=== PATIENT | female | born 1985 | race Caucasian/White ===

== ENCOUNTER 2016-09-19 09:39 | Inpatient (IN) | payer OTHER ==
[2016-09-19] MEDS ORDERED: METHYLERGONOVINE 0.2 MG/ML 1 ML AMP IM PRN (10:13)
[2016-09-19] MEDS ORDERED: OXYTOCIN 10 UNIT/ML 1 ML VIAL IM PRN (10:13)
[2016-09-19] MEDS ORDERED: TERBUTALINE 1 MG/ML VIAL SQ PRN (10:13)
[2016-09-19] MEDS ORDERED: LIDOCAINE 1% (PF) 10 MG/ML (30 ML SDV) SQ PRN (10:13)
[2016-09-19] MEDS ORDERED: CARBOPROST TROMETHAMINE 250 MCG/ML 1 ML AMP IM PRN (10:13)
[2016-09-19] MEDS ORDERED: OXYTOCIN 30 UNITS/500 ML NS 30 UNIT in SALINE 1 500ML.BAG IV SCH (10:15)
[2016-09-19 10:19] VITALS: BMI 29.0
[2016-09-19] MEDS: LACTATED RINGERS 1,000 ML IV SCH ×2 (10:55→14:50)
[2016-09-19 10:59] LABS: Basophils % (A) 0 %; CH 28.6; CHCM 32.6; Eosinophils # (A) 0.3 k/uL (0-0.7); Eosinophils % (A) 3 %; HCT 30.5 % (34.0-46.0); HDW 3.72; HGB 9.5 gm/dL (11.4-16.0); Hypochromasia Slight; Luc # (Auto) 0.16; Luc % (Auto) 2; Lymphocytes # (A) 1.5 k/uL (1.0-4.8); Lymphocytes % (A) 17 %; MCH 27.5 pg (25.0-35.0); MCHC 31.3 g/dL (31.0-37.0); MCV 87.9 fL (80.0-100.0); Mean Platelet Volume 8.6; Monocytes # (A) 0.3 k/uL (0-1.0); Monocytes % (A) 3 %; Neutrophils # (A) 6.7 k/uL (1.3-7.7); Neutrophils % (A) 75 %; Poikilocytosis Slight; RBC 3.46 m/uL (3.80-5.40); RDW 14.7 % (11.5-15.5); WBC (Perox) 9.78
[2016-09-19 11:03] LABS: Glucose,Whole Blood 77 mg/dL (75-99)
[2016-09-19 12:26] LABS: Hemoglobin A1C 5.4 % (4.2-6.1)
[2016-09-19] MEDS ORDERED: BUPIVACAINE (PF) 0.25% 25 ML, fentaNYL (PF) 200 MCG in SODIUM CHLORIDE 0.9% 71 ML EPIDURAL ONE (14:48)
[2016-09-19] MEDS ORDERED: diphenhydrAMINE 50 MG/ML 1 ML VIAL IVP PRN ×2 (18:45)
[2016-09-19] MEDS ORDERED: IBUPROFEN 600 MG TAB PO PRN (18:45)
[2016-09-19] MEDS ORDERED: Acetaminophen-Codeine 300-30mg TAB PO PRN ×2 (18:45)
[2016-09-19] MEDS ORDERED: ZOLPIDEM 5 MG TAB PO PRN (18:45)
[2016-09-19] MEDS ORDERED: SIMETHICONE 80 MG CHEWABLE PO PRN (18:45)
[2016-09-19] MEDS ORDERED: ACETAMINOPHEN TAB 325 MG TAB PO PRN (18:45)
[2016-09-19] MEDS ORDERED: diphenhydrAMINE 25 MG CAP PO PRN (18:45)
[2016-09-19] MEDS ORDERED: HYDROCORTISONE 2.5% RECTAL CREAM 30 GM TUBE RECTAL PRN (18:45)
[2016-09-19] MEDS ORDERED: WITCH HAZEL 1 EACH MED..PAD TOPICAL PRN (18:45)
[2016-09-19] MEDS ORDERED: diphenhydrAMINE 50 MG CAP PO PRN (18:45)
[2016-09-19] MEDS ORDERED: BENZOCAINE/MENTHOL SPRAY 1 GM/SPRAY AEROSOL TOPICAL PRN (18:45)
[2016-09-19] MEDS ORDERED: LANOLIN CREAM 5 GM TUBE TOPICAL PRN (18:45)
--- NOTE | 2016-09-19 18:51 | P.HPOB ---
History of Present Illness H&P Date: 09/19/16 Chief Complaint: IUP term: JAMES Traore is a 31-year-old at 38 weeks gestation arrives complaining of spontaneous rupture membranes. She reports that earlier this morning she had a large gush of fluid and continued to leak. Amateur was positive. She was having few contractions. She was dilated 3 cm 90% effaced and -3 station. Her course otherwise was unremarkable. She was feeling well at this time. Pertinent labs include A+ blood type Rh antibody negative, rubella immune , hepatitis B surface antigen and RPR were negative GBS negative. Assessment intrauterine 38 weeks. Plan expect spontaneous vaginal delivery. She plans to do epidural for analgesia. Review of Systems All systems: negative Constitutional: Denies chills, Denies fever Eyes: denies blurred vision, denies pain Ears, nose, mouth and throat: Denies headache, Denies sore throat Cardiovascular: Denies chest pain, Denies shortness of breath Respiratory: Denies cough Gastrointestinal: Denies abdominal pain, Denies diarrhea, Denies nausea, Denies vomiting Genitourinary: Denies dysuria, Denies hematuria Musculoskeletal: Denies myalgias Integumentary: Denies pruritus, Denies rash Neurological: Denies numbness, Denies weakness Psychiatric: Denies anxiety, Denies depression Endocrine: Denies fatigue, Denies weight change Past Medical History Past Medical History: No Reported History History of Any Multi-Drug Resistant Organisms: None Reported Past Surgical History: No Surgical Hx Reported Past Anesthesia/Blood Transfusion Reactions: No Reported Reaction Past Psychological History: No Psychological Hx Reported Smoking Status: Never smoker Past Alcohol Use History: None Reported Past Drug Use History: None Reported - Past Family History Mother Family Medical History: Hypertension Medications and Allergies Home Medications Medication Instructions Recorded Confirmed Type Fio-Wghy-Dkpal Acid 1 cap PO DAILY 09/19/16 09/19/16 History [-U Capsule] Allergies Allergy/AdvReac Type Severity Reaction Status Date / Time No Known Allergies Allergy Verified 09/19/16 09:51 Exam Osteopathic Statement: *. No significant issues noted on an osteopathic structural exam other than those noted in the History and Physical/Consult. - Vital Signs Vital signs: Vital Signs Temp Pulse Resp BP 09/19/16 10:13 97.0 F L 134 H 16 118/77 Intake and Output 09/19/16 09/19/16 09/19/16 06:59 14:59 22:59 Intake Total 1000 Balance 1000 Intake: IV 1000 Lactated Ringers 1,000 ml 1000 @ 125 mls/hr IV .Q8H [facility] Rx#:[id number] Other: Weight 67.585 kg Patient Weight 09/20/16 06:59 Weight 67.585 kg - OBG Physical Exam Breast: both: normal (no masses) Abdomen: bowel sounds normal, no diffuse tenderness, no bruit present, no guarding noted, no hepatomegaly, no splenomegaly, no mass Vulva: both: normal Vagina: normal moisture, no discharge Cervix: no lesion, no discharge Uterus: normal size, normal contour Adnexa: both: normal Anus/Rectum: normal perianal skin, no rectal mass, no hemorrhoids, heme negative Results Result Diagrams: 09/19/16 10:47 Abnormal Lab Results - Last 24 Hours (Table) 09/19/16 Range/Units 10:47 RBC 3.46 L (3.80-5.40) m/uL Hgb 9.5 L (11.4-16.0) gm/dL Hct 30.5 L (34.0-46.0) %
--- NOTE | 2016-09-19 18:55 | P.PROBDLV ---
Vaginal Delivery Note - . Vaginal Delivery Note: Patient progressed to complete and pushing with spontaneous vaginal delivery of a viable male over a third-degree midline episiotomy. Following delivery of the head anterior posterior shoulders were easily delivered with gentle downward upper traction followed by the remainder the baby. Mouth nares were then bulb suctioned and baby was placed on mother's abdomen where the umbilical cord was clamped and cut in usual fashion. Placenta was then delivered intact and Pitocin was added to the IV. Inspection of the perineum revealed a third-degree extension of the episiotomy. Once this was evaluated 3- 0 Vicryl was used to oversew the capsular area of the rectum bringing the external anal sphincter muscles together and with good approximation. Anal wink was noted. I did do a rectal exam both before repair and after repair and no capsular damage was detected. once the initial repair of the tissues over the rectum was completed the remainder of the episiotomy was closed with 3-0 Vicryl. Once completed, sponge and instrument count were correct. scores were 8 and 9 at one and 5 minutes respectively and the weight was 6 lbs. 14 oz. Both mother and baby are stable following delivery.
[2016-09-19] MEDS: SENNOSIDES-DOCUSATE SODIUM 1 EACH TAB PO SCH (21:35)
[2016-09-19] MEDS: IBUPROFEN ORAL SUSP 100 MG/5 ML CUP PO PRN (22:08)
[2016-09-20] MEDS: ACET/COD 240MG/24MG LIQ 10 ML SYRG PO PRN ×3 (04:11→23:40)
[2016-09-20] MEDS: LACTATED RINGERS 1,000 ML IV SCH (04:12)
[2016-09-20] MEDS ORDERED: INFLUENZA VACCINE (3YR+) 60 MCG/0.5 ML SYRINGE IM ONE (04:38)
--- NOTE | 2016-09-20 08:37 | P.PNOBGVD ---
Subjective - Subjective Principal diagnosis: post day 1 Interval history: Eugenie is seen and evaluated day 1. Overall she says she is feeling fine but she does have some soreness. She did have a third-degree perineal extension of an episiotomy which she says is tender but with lysis coned-down swelling lysed. We'll plan to continue observational care today or trying to keep her stool at least somewhat soft so that she does not have to bear down much potentially damaging the repair that was done in that area. Other questions are answered for her at this time. Her vital signs are currently stable and she is afebrile. Her heart is regular, lungs are clear and her extremities are without pain. Assessment day 1. Plan discharged to home. Patient reports: Reports appetite normal, Reports voiding normally, Reports pain well controlled, Reports ambulating normally [place]: doing well Objective - Latest Vital Signs Latest vital signs: Vital Signs Temp Pulse Resp BP Pulse Ox 09/20/16 08:00 98.1 F 95 16 108/54 09/20/16 04:00 98.0 F 93 16 104/66 09/19/16 23:53 98 F 93 16 129/70 09/19/16 20:24 97.6 F 118 H 16 118/67 09/19/16 19:54 121 H 16 111/61 09/19/16 19:24 97.6 F 121 H 16 114/68 97 09/19/16 19:09 112 H 16 107/58 09/19/16 18:54 127 H 16 127/63 09/19/16 18:39 130 H 16 122/61 09/19/16 18:24 97.9 F 130 H 16 123/60 09/19/16 10:13 97.0 F L 134 H 16 118/77 Intake and Output 09/19/16 09/20/16 09/20/16 22:59 06:59 14:59 Other: # Voids 1 1 1 - Exam Lungs: bilateral: normal Chest: Normal S1, Normal S2 Extremities: Present: normal Abdomen: Present: normal appearance, soft Uterus: Present: normal, firm Comments: Third-degree perineal repair intact - Labs Labs: Abnormal Lab Results - Last 24 Hours (Table) 09/19/16 Range/Units 10:47 RBC 3.46 L (3.80-5.40) m/uL Hgb 9.5 L (11.4-16.0) gm/dL Hct 30.5 L (34.0-46.0) %
[2016-09-20] MEDS: SENNOSIDES-DOCUSATE SODIUM 1 EACH TAB PO SCH ×2 (08:55→20:30)
[2016-09-20] MEDS: IBUPROFEN ORAL SUSP 100 MG/5 ML CUP PO PRN ×2 (09:22→18:38)
[2016-09-20] MEDS ORDERED: fentaNYL (PF) 50 MCG/ML 5 ML AMP ONE (14:32)
[2016-09-20] MEDS ORDERED: BUPIVACAINE (PF) 0.25% 30 ML VIAL ONE (14:32)
[2016-09-20] MEDS ORDERED: SODIUM CHLORIDE 0.9% 100 ML BAG ONE (14:32)
[2016-09-21 08:00] VITALS: BP 118/71; PULSE 100; RESP 16; TEMP 97.1
[2016-09-21] MEDS: IBUPROFEN ORAL SUSP 100 MG/5 ML CUP PO PRN (08:12)
--- NOTE | 2016-09-21 08:40 | P.DS ---
Providers Date of admission: 09/19/16 10:08 Expected date of discharge: 09/21/16 Attending physician: Ramana Cordero Primary care physician: Stated None Hospital Course: Overall pale is doing very well. She is ambulating, voiding, and she is tolerating her diet. She has had a bowel movement and did not show some prominent her stitches. Her vital signs are stable and afebrile. Her heart is regular her lungs are clear and her abdomen is soft. Her uterus is firm and lochia is reported be light. Extremities are without pain. Prescription for Tylenol 3 and Motrin provided. She will follow me in 6 weeks. Discharge instructions were thoroughly reviewed and all questions are answered for her prior to discharge. She is stable for discharge today on day 2. Patient Condition at Discharge: Good Plan - Discharge Summary New Discharge Prescriptions: Acetaminophen-Codeine 300-30mg [Tylenol #3] 1 tab PO Q4H PRN #30 tablet PRN Reason: Pain Ibuprofen [Motrin] 600 mg PO Q6HR PRN #30 tab PRN Reason: Pain Discharge Medication List Lgy-Lnja-Mlfhz Acid [-U Capsule] 1 cap PO DAILY 09/19/16 [ History] Acetaminophen-Codeine 300-30mg [Tylenol #3] 1 tab PO Q4H PRN #30 tablet [Rx] Ibuprofen [Motrin] 600 mg PO Q6HR PRN #30 tab 09/21/16 [Rx] Follow up Appointment(s)/Referral(s): Ramana Cordero DO [Doctor of Osteopathic Medicine] - 1 Week Activity/Diet/Wound Care/Special Instructions: No heavy lifting, limit stairs and driving and pelvic rest. If any high temperatures, heavy bleeding, or severe pain call my office Discharge Disposition: HOME SELF-CARE
== END 2016-09-21 12:30 | disposition home or self-care (01) | DRG 775 ==
LOC: FBPOP 09:39 → 4FBP 10:08
PROVIDERS: ADMIT Obstetrics & Gynecology; ATTEND Obstetrics & Gynecology
PROC: 0DQR0ZZ Repair Anal Sphincter, Open Approach (ICD-10-PCS; principal; 2016-09-19)
PROC: 10E0XZZ Delivery of Products of Conception, External Approach (ICD-10-PCS; principal; 2016-09-19)
PROC: 0W8NXZZ Division of Female Perineum, External Approach (ICD-10-PCS; principal; 2016-09-19)
DX: O70.20 Third degree perineal laceration during delivery, unspecified (principal); Z37.0 Single live birth; Z3A.38 38 weeks gestation of pregnancy
CPT/HCPCS: 59025; 83036; 84112; 85025; 88307; 90686; 99213

== ENCOUNTER → 2018-02-09 | Outpatient (CLI) | payer OTHER ==
--- NOTE | 2018-01-30 14:23 | US ---
EXAMINATION TYPE: US OB anatomy transabd DATE OF EXAM: 01/30/2018 COMPARISON: NONE HISTORY: 32-year-old female O36.62X0 Large for dates 2nd trimester. LGA TECHNIQUE: Transabdominal (TA) FINDINGS: EXAM MEASUREMENTS: GESTATIONAL AGE / DATING Physician Established: (19 weeks/0 days) EDC: 06/26/18 Dates by LMP: (19 weeks/0 days) EDC: 06/26/18 Dates by First Scan: no prior scan Dates by Current Scan for: (19 weeks/1 days) EDC: 06/25/18 SURVEY IUP: Single PLACENTA: Anterior/fundal PREVIA: No previa LALITA: 10.3 cm Normal CERVICAL LENGTH (transabdominal: norm > 3.0cm): 4.0 cm BIOMETRY PRESENTATION: Variable LIE: Transverse lie with head maternal LT BPD: 4.2 cm 18 weeks / 4 days HC: 16.0 cm 18 weeks / 6 days AC: 14.7 cm 20 weeks / 0 days FL: 3.1 cm 19 weeks / 5 days ESTIMATED WEIGHT IN GRAMS: 306 grams ESTIMATED WEIGHT IN LBS/OZ: 0 lbs. 11 oz. WEIGHT PERCENTAGE BASED ON ESTABLISHED DATE: 83.6 % HC/AC: 1.09 Normal FL/AC: 21.23 Normal HEART RATE: 140 bpm RHYTHM: Normal ANATOMY SEEN (within normal limits): Lateral Vent (< 1 cm) 0.7 cm Cisterna Magna (< 1.1 cm) 0.4 cm Nuchal Fold (< 0.6 cm) 0.4 cm Cerebellum (varies with age) 1.7 cm Choroid Plexus (bilateral) Midline Falx Cavus Septi Pellucidi Four Chamber Heart Outflow tracts: RVOT Stomach Situs Nose / Lips Diaphragm Kidneys (bilateral) Bladder Cord Insert Three Vessel Cord Arms (bilateral) Legs (bilateral) ANATOMY SUBOPTIMALLY VISUALIZED: Outflow tracts: LVOT Longitudinal Spine Transverse Spine Single viable IUP 19wks/1day with CECILIA of 06/25/18. IMPRESSION: 1. Single live intrauterine with estimated gestational age of 19 weeks 0 days. Current ultr asound biometry is concordant (19 weeks 1 day) placing the child at the 84th percentile for weight. 2. A few of the structures on the survey were suboptimally visualized (LVOT and transverse/long itudinal spine). If desired, the patient can be scheduled for a rescan in one to 2 weeks to reassess these structures. 3. Otherwise, the remaining structures appear normal.
--- NOTE | 2018-02-09 14:16 | US ---
EXAMINATION TYPE: US OB Call Back DATE OF EXAM: 02/09/2018 COMPARISON: US CLINICAL HISTORY: [id number] FOLLOW PREV ABN ULTRASOUND; OB callback for spine and LVOT GESTATIONAL AGE / DATING Dates by Initial Survey Scan: (19 weeks/1 day) EDC: 06/25/2018 HEART RATE: 144 bpm RHYTHM: Normal ANATOMY SEEN (second anatomic survey look): LVOT within normal limits Longitudinal Spine: within normal limits Transverse Spine: within normal limits IMPRESSION: Longitudinal and transverse spine as well as LVOT are within normal limits.
== END | disposition home or self-care (01) ==
LOC: RADUSWWP 01-30 11:55
PROVIDERS: ATTEND Obstetrics & Gynecology
DX: O36.62X0 Maternal care for excessive fetal growth, second trimester, not applicable or unspecified (principal); Z3A.19 19 weeks gestation of pregnancy
CPT/HCPCS: 76811

== ENCOUNTER → 2018-05-01 | Outpatient (CLI) | payer OTHER ==
--- NOTE | 2018-05-01 17:48 | US ---
EXAMINATION TYPE: US OB >= 14 wk fetus DATE OF EXAM: 05/01/2018 COMPARISON: 01/30/2018 CLINICAL HISTORY: 32-year-old female O36.63X0 Large for dates 3rd trimester, growth TECHNIQUE: OBTA FINDINGS: GESTATIONAL AGE / DATING Physician Established: (32 weeks/0 days) EDC: 06/26/2018 Dates by LMP: (32 weeks/0 days) EDC: 06/26/2018 Dates by First Scan: (32 weeks/0 days) EDC: 06/26/2018 Dates by Current Scan: (33 weeks/5 days +/- 2 weeks 3 days) EDC: 06/14/2018 (11 days more growth than expected from 01/30/2018) SURVEY IUP: Single PLACENTA: Anterior PREVIA: No Previa LALITA: 20.5 cm , upper limits of normal. CERVICAL LENGTH (transabdominal: norm > 3.0cm): 3.9 cm BIOMETRY PRESENTATION: Vertex LIE: Longitudinal BPD: 8.4 cm 33 weeks / 6 days HC: 30.7 cm 34 weeks / 2 days AC: 28.9 cm 33 weeks / 0 days FL: 6.6 cm 33 weeks / 6 days ESTIMATED WEIGHT IN GRAMS: 2196 grams ESTIMATED WEIGHT IN LBS/OZ: 4 lbs. 13 oz. WEIGHT PERCENTAGE BASED ON ESTABLISHED DATES: 84% (versus 83.6%, previously). HC/AC: 1.1 Normal FL/AC: 22.6 Normal HEART RATE: 159 bpm RHYTHM: Normal IMPRESSION: 1. Single live intrauterine with estimated and established gestational age of 32 weeks 0 da ys by LMP. By current ultrasound biometry, there has been 11 days more growth than expected from 01/30 placing the gestation at 33 weeks 5 days. Continued follow-up can be performed. 2. EFW % remains around the 84th percentile.
== END ==
LOC: RADUSWWP 14:12
PROVIDERS: ATTEND Obstetrics & Gynecology
DX: O36.63X0 Maternal care for excessive fetal growth, third trimester, not applicable or unspecified (principal); Z3A.32 32 weeks gestation of pregnancy
CPT/HCPCS: 76805

== ENCOUNTER 2018-06-20 06:00 | Inpatient (IN) | payer OTHER ==
[2018-06-20] MEDS ORDERED: CARBOPROST TROMETHAMINE 250 MCG/ML 1 ML AMP IM PRN (06:57)
[2018-06-20] MEDS ORDERED: TERBUTALINE 1 MG/ML VIAL SQ PRN (06:57)
[2018-06-20] MEDS ORDERED: OXYTOCIN 10 UNIT/ML 1 ML VIAL IM PRN (06:57)
[2018-06-20] MEDS ORDERED: LIDOCAINE 0.5% (PF) 5 MG/ML (50 ML SDV) SQ PRN (06:57)
[2018-06-20] MEDS ORDERED: METHYLERGONOVINE 0.2 MG/ML 1 ML AMP IM PRN (06:57)
[2018-06-20] MEDS ORDERED: OXYTOCIN 20 UNITS/1000 ML NS 1,000 ML IV SCH (07:00)
[2018-06-20] MEDS: LACTATED RINGERS 1,000 ML IV SCH ×2 (07:02→23:59)
[2018-06-20 07:11] LABS: Basophils % (A) 0 %; Eosinophils # (A) 0.2 k/uL (0-0.7); Eosinophils % (A) 2 %; HCT 37.1 % (34.0-46.0); HGB 12.3 gm/dL (11.4-16.0); Lymphocytes # (A) 2.4 k/uL (1.0-4.8); Lymphocytes % (A) 30 %; MCH 31.2 pg (25.0-35.0); MCHC 33.2 g/dL (31.0-37.0); Monocytes # (A) 0.2 k/uL (0-1.0); Monocytes % (A) 3 %; Neutrophils # (A) 4.8 k/uL (1.3-7.7); Neutrophils % (A) 62 %; Platelet Count 169 k/uL (150-450); RBC 3.95 m/uL (3.80-5.40); RDW 14.9 % (11.5-15.5); WBC 7.8 k/uL (3.8-10.6)
[2018-06-20 07:33] VITALS: RESP 16; BMI 30.2
--- NOTE | 2018-06-20 08:14 | P.HPOB ---
History of Present Illness H&P Date: 06/20/18 Chief Complaint: Intrauterine at term: Induction of labor Eugenie is a 33-year-old at 39 weeks gestation who arrives for induction of labor. Her course has been unremarkable and she is feeling well at this time. Currently she is dilated to approximately 2 cm and 70% effaced. Artificial rupture membranes was performed and clear fluid is noted. Pertinent labs include A+ blood type Rh antibody was negative, rubella immune, hepatitis B surface antigen and RPR as well as GBS were all negative. All questions are answered for her and there is a category 1 tracing noted at this time. We plan to expect spontaneous vaginal delivery at currently she into space not using anything for pain. Past Medical History Past Medical History: No Reported History History of Any Multi-Drug Resistant Organisms: None Reported Past Surgical History: No Surgical Hx Reported Past Anesthesia/Blood Transfusion Reactions: No Reported Reaction Past Psychological History: No Psychological Hx Reported Smoking Status: Never smoker Past Alcohol Use History: None Reported Past Drug Use History: None Reported - Past Family History Mother Family Medical History: Hypertension Medications and Allergies Home Medications Medication Instructions Recorded Confirmed Type Fsm-Hmhu-Htaqc Acid 1 cap PO DAILY 09/19/16 06/20/18 History [-U Capsule (formulary)] Ferrous Sulfate [Iron] 325 mg PO DAILY 06/20/18 06/20/18 History Allergies Allergy/AdvReac Type Severity Reaction Status Date / Time No Known Allergies Allergy Verified 09/19/16 09:51 Exam Osteopathic Statement: *. No significant issues noted on an osteopathic structural exam other than those noted in the History and Physical/Consult. Vital Signs Temp Pulse Resp BP 06/20/18 06:54 97.4 F L 120 H 16 136/82 Intake and Output 06/19/18 06/20/18 06/20/18 22:59 06:59 14:59 Other: Weight 70.307 kg - OBG Physical Exam Breast: both: normal (no masses) Abdomen: bowel sounds normal, no diffuse tenderness, no bruit present, no guarding noted, no hepatomegaly, no splenomegaly, no mass Vulva: both: normal Vagina: normal moisture, no discharge Cervix: no lesion, no discharge Uterus: normal size, normal contour Adnexa: both: normal Anus/Rectum: normal perianal skin, no rectal mass, no hemorrhoids, heme negative Results Result Diagrams: 06/20/18 06:55
[2018-06-20] MEDS ORDERED: diphenhydrAMINE 50 MG CAP PO PRN (12:33)
[2018-06-20] MEDS ORDERED: HYDROcodone/APAP 5-325MG 1 EACH TAB PO PRN (12:33)
[2018-06-20] MEDS ORDERED: IBUPROFEN 600 MG TAB PO PRN (12:33)
[2018-06-20] MEDS ORDERED: LANOLIN CREAM 5 GM TUBE TOPICAL PRN (12:33)
[2018-06-20] MEDS ORDERED: HYDROCORTISONE 2.5% RECTAL CREAM 30 GM TUBE RECTAL PRN (12:33)
[2018-06-20] MEDS ORDERED: ZOLPIDEM 5 MG TAB PO PRN (12:33)
[2018-06-20] MEDS ORDERED: MEASLES-MUMPS-RUBELLA VACC/PF 12,500 UNIT/0.5 ML VIAL SQ ONE (12:33)
[2018-06-20] MEDS ORDERED: diphenhydrAMINE 50 MG/ML 1 ML VIAL IVP PRN ×2 (12:33)
[2018-06-20] MEDS ORDERED: SIMETHICONE 80 MG CHEWABLE PO PRN (12:33)
[2018-06-20] MEDS ORDERED: ACETAMINOPHEN TAB 325 MG TAB PO PRN (12:33)
[2018-06-20] MEDS ORDERED: WITCH HAZEL 1 EACH MED..PAD TOPICAL PRN (12:33)
[2018-06-20] MEDS ORDERED: diphenhydrAMINE 25 MG CAP PO PRN (12:33)
[2018-06-20] MEDS ORDERED: BENZOCAINE/MENTHOL SPRAY 1 GM/SPRAY AEROSOL TOPICAL PRN (12:33)
--- NOTE | 2018-06-20 12:35 | P.PROBDLV ---
Vaginal Delivery Note - . Vaginal Delivery Note: Patient progressed complete and pushed was spontaneous vaginal delivery over a midline episiotomy. Midline episiotomy was done due to heart tones in the 50s during her pushing. In between pushes heart rate sounded like it came up But I Cannot Verify That As We Were Unable to Keep the Baby on the Monitor Well at That Point, and with the Heart Tones in the 50s during Pushing Expeditious Delivery Was Required. A Nuchal Cord 2 Was Noted Following Delivery of the Head and It Was Easily Reduced. Anterior and Posterior Shoulders Were Then Gently Delivered without Difficulty. Mouth and Nares Were Then Bulb Suctioned and Baby Was Placed on Mother's Abdomen Where the Umbilical Cord Was Clamped Cut Usual Fashion. Placenta Was Then Delivered Intact and Pitocin Was Added to the IV. Second-Degree Episiotomy Was Noted and Repaired in Usual Fashion with 3-0 Vicryl Following 1% Xylocaine for Analgesia. Scores Were 9 and 9 at One and 5 Minutes Respectively and the Weight Was 7 Lbs. 6 Oz. Both Mother and Baby Are Stable Following Delivery.
[2018-06-20] MEDS: IBUPROFEN ORAL SUSP 100 MG/5 ML CUP PO PRN ×2 (13:31→21:11)
[2018-06-20] MEDS: SENNOSIDES-DOCUSATE SODIUM 1 EACH TAB PO SCH (21:07)
[2018-06-21] MEDS: LACTATED RINGERS 1,000 ML IV SCH (00:01)
[2018-06-21] MEDS: IBUPROFEN ORAL SUSP 100 MG/5 ML CUP PO PRN ×2 (04:13→14:11)
[2018-06-21 08:37] LABS: Basophils % (A) 0 %; Eosinophils # (A) 0.1 k/uL (0-0.7); Eosinophils % (A) 1 %; HCT 31.2 % (34.0-46.0); HGB 10.3 gm/dL (11.4-16.0); Lymphocytes # (A) 1.7 k/uL (1.0-4.8); Lymphocytes % (A) 22 %; MCH 31.3 pg (25.0-35.0); Mean Platelet Volume 7.8; Monocytes # (A) 0.2 k/uL (0-1.0); Monocytes % (A) 3 %; Neutrophils # (A) 5.4 k/uL (1.3-7.7); Neutrophils % (A) 72 %; Platelet Count 157 k/uL (150-450); RBC 3.29 m/uL (3.80-5.40); RDW 14.8 % (11.5-15.5); WBC 7.5 k/uL (3.8-10.6)
[2018-06-21 09:14] VITALS: BP 114/73; PULSE 102; TEMP 98.6
--- NOTE | 2018-06-21 11:14 | P.DS ---
Providers Date of admission: 06/20/18 06:20 Expected date of discharge: 06/21/18 Attending physician: Ramana Cordero Primary care physician: Ramana Cordero Hospital Course: Family history very well day 1. She is ambulating, voiding, and she is tolerating her diet. She voices no complaints and requests discharged home today. Vital signs are stable and she is afebrile. Heart regular, lungs clear , extremities are without pain. Abdomen is soft uterus is firm and lochia is reported light. Assessment day 1. Plan discharged home follow up with me in 6 weeks. Prescription for Motrin was forwarded to her pharmacy. Patient Condition at Discharge: Good Plan - Discharge Summary New Discharge Prescriptions: New Ibuprofen [Motrin] 600 mg PO Q6HR PRN #30 tab PRN Reason: Pain No Action Geh-Ojzz-Rebhi Acid [-U Capsule (formulary)] 1 cap PO DAILY Ferrous Sulfate [Iron] 325 mg PO DAILY Discharge Medication List Boc-Fagk-Dfvrn Acid [-U Capsule (formulary)] 1 cap PO DAILY 12/29 [History] Ferrous Sulfate [Iron] 325 mg PO DAILY 06/20/18 [History] Ibuprofen [Motrin] 600 mg PO Q6HR PRN #30 tab 06/21/18 [Rx] Follow up Appointment(s)/Referral(s): Ramana Cordero DO [Primary Care Provider] - 1 Week Activity/Diet/Wound Care/Special Instructions: No heavy lifting, limit stairs and driving, and pelvic rest. If any high temperatures, heavy bleeding, or severe pain call my office Discharge Disposition: HOME SELF-CARE
[2018-06-21] MEDS: SENNOSIDES-DOCUSATE SODIUM 1 EACH TAB PO SCH (14:02)
[2018-06-21] MEDS ORDERED: INFLUENZA VACCINE (6 MOS+) 60 MCG/0.5 ML SYRINGE IM ONE (14:17)
== END 2018-06-21 15:00 | disposition home or self-care (01) | DRG 807 ==
LOC: 4FBP 06:20
PROVIDERS: ADMIT Obstetrics & Gynecology; ATTEND Obstetrics & Gynecology
PROC: 0W8NXZZ Division of Female Perineum, External Approach (ICD-10-PCS; principal; 2018-06-20)
PROC: 10907ZC Drainage of Amniotic Fluid, Therapeutic from Products of Conception, Via Natural or Artificial Opening (ICD-10-PCS; principal; 2018-06-20)
PROC: 3E033VJ Introduction of Other Hormone into Peripheral Vein, Percutaneous Approach (ICD-10-PCS; principal; 2018-06-20)
PROC: 10E0XZZ Delivery of Products of Conception, External Approach (ICD-10-PCS; principal; 2018-06-20)
DX: O69.81X0 Labor and delivery complicated by cord around neck, without compression, not applicable or unspecified (principal); Z37.0 Single live birth; Z3A.39 39 weeks gestation of pregnancy; O76 Abnormality in fetal heart rate and rhythm complicating labor and delivery
CPT/HCPCS: 85025; 86850; 86900; 86901; 90686